=== PATIENT | female | born 1990 | race Caucasian/White ===

== ENCOUNTER 2020-01-20 10:10 | Inpatient (IN) | payer OTHER ==
[~2020-01-20 10:10] MED LIST: AMPICILLIN - 2 GM in SODIUM CHLORIDE 100 ML IVPB ONE; ELECTROLYTE-148 SOLN 500 ML IV ONE
[2020-01-20] MEDS ORDERED: AMPICILLIN SODIUM 2 GM VIAL ONE (10:24)
[2020-01-20] MEDS ORDERED: ELECTROLYTE-148 SOLN 1,000 ML IV SCH (11:00)
[2020-01-20 11:23] VITALS: BMI 25.7
[2020-01-20 11:34] LABS: INR 0.85 (0.83-1.09)
[2020-01-20 11:43] LABS: BASO % 0.2 % (0-2.0); EOS % 0.3 % (0-4.5); HEMATOCRIT 35.7 % (32.4-45.2); HEMOGLOBIN 11.8 GM/dL (10.7-15.3); LYMPH % 18.2 % (8-40); MCH 29.2 pg (25.7-33.7); MCHC 33.1 g/dl (32.0-36.0); MEAN CELL VOLUME 88.1 fl (80-96); MEAN PLT VOLUME 9.7 fl (7.5-11.1); MONO % 8.3 % (3.8-10.2); PLATELET COUNT 247 K/MM3 (134-434); RBC 4.06 M/mm3 (3.60-5.2); RDW 14.4 % (11.6-15.6); WHITE BLOOD COUNT 9.6 K/mm3 (4.0-10.0)
[2020-01-20] MEDS ORDERED: PCA PUMP NR ONE (11:47)
[2020-01-20] MEDS ORDERED: FENTANYL/BUPIVACAINE/NS/PF - PCEA - 50 ML DISP.SYRIN EP ONE (11:48)
[2020-01-20 11:50] LABS: BLOOD UREA NITROGEN 8.7 mg/dL (7-18); CALCIUM 8.9 mg/dL (8.5-10.1); CREATININE 0.5 mg/dL (0.55-1.3); POTASSIUM 3.9 mmol/L (3.5-5.1)
[2020-01-20] MEDS ORDERED: NALOXONE HCL 0.4 MG/ML VIAL IVPUSH PRN (13:28)
[2020-01-20] MEDS ORDERED: FENTANYL/BUPIVACAINE/NS/PF - PCEA - 50 ML DISP.SYRIN EP SCH (13:30)
[2020-01-20] MEDS: AMPICILLIN - 1 GM in SODIUM CHLORIDE 100 ML IVPB SCH (13:30)
[2020-01-20] MEDS ORDERED: AMPICILLIN SODIUM 1 GM VIAL ONE (13:33)
[2020-01-20] MEDS ORDERED: OXYTOCIN 20 UNITS in 0.9% NS 20 UNIT/1,000 ML INFUS.BAG IV ONE ×2 (13:33→15:59)
[2020-01-20] MEDS ORDERED: BENZOCAINE 28 GM HEMORRHOIDAL OINTMENT TP PRN (14:38)
[2020-01-20] MEDS ORDERED: BISACODYL 10 MG SUPP.RECT RC PRN (14:38)
[2020-01-20] MEDS ORDERED: METHYLERGONOVINE MALEATE 0.2 MG/1 ML AMP IM PRN (14:38)
--- NOTE | 2020-01-20 14:40 | HP ---
Past Medical History - Primary Care Physician PCP:: Zack Briseno - Past Medical History ...: 1 ...Para: 0 ...Term: 0 ...: 0 ...Spon : 0 ...Induced : 0 ...Living Children: 0 ...Multiple Gestation: 0 ...LMP: 04/12/19 ... Weeks Gestation by Dates: 40.3 ...EDC by Dates: 01/17/20 ...EDC by Sono: 01/25/20 - Smoking History Smoking history: Never smoked Have you smoked in the past 12 months: No - Alcohol/Substance Use Hx Alcohol Use: No Home Medications - Allergies Allergies/Adverse Reactions: Allergies Allergy/AdvReac Type Severity Reaction Status Date / Time rabbit dander Allergy Mild Verified 01/20/20 11:07 No Known Drug Allergies Allergy Verified 01/20/20 11:07 - Home Medications Home Medications: Ambulatory Orders Vitamins (Sjr) - 1 tab PO DAILY 01/20/20 Physical Exam - Maternity Vital Signs: Vital Signs Temperature 98.1 F 01/20/20 12:00 Pulse Rate 92 H 01/20/20 13:30 Respiratory Rate 20 01/20/20 13:30 Blood Pressure 132/84 01/20/20 13:30 O2 Sat by Pulse Oximetry (%) 100 01/20/20 13:30 - Labs Lab Results: CBC, BMP 01/20/20 10:50 01/20/20 10:50
[2020-01-20] MEDS ORDERED: OXYTOCIN 20 UNITS in 0.9% NS 20 UNIT/1,000 ML INFUS.BAG IV SCH (14:45)
[2020-01-20 14:56] LABS: CORD BASE EXCESS -4.9 mmol/L (0-2); CORD HCO3 20.2 mmHg (20-29); CORD PCO2 38.1 mmHg (30-78); CORD pH 7.343 (7.14-7.44)
[2020-01-20] MEDS: IBUPROFEN 600 MG TABLET (FP) PO PRN ×3 (16:20→23:53)
[2020-01-20] MEDS: ACETAMINOPHEN 325 MG TABLET (FP) PO PRN ×3 (16:20→23:53)
[2020-01-20] MEDS ORDERED: ACETAMINOPHEN 325 MG TABLET (FP) ONE (16:26)
[2020-01-20] MEDS ORDERED: IBUPROFEN 600 MG TABLET (FP) PO ONE (16:26)
--- NOTE | 2020-01-20 16:51 | PN ---
Delivery - Delivery Vaginal Delivery: Spontaneous (cx full head on pernium, head dilivered , cord around neck once reduced , ant and post . shoulder with no difficulty , live baby girl, 9/9 , placeta complete, median episiotomy in 3 layers with 2o chromic , ebl 300 cc , no complication, baby bonded with mom) Type of Anesthesia: Local, Epidural Episiotomy/Laceration: Midline EBL (cc): 300 Delivery, Single - Stages of Labor Date 1st Stage Initiatied: 01/20/20 Time 1st Stage Initiated: 04:00 Date 2nd Stage Initiated: 01/20/20 Time 2nd Stage Initiated: 13:55 Date of Delivery: 01/20/20 Time of Delivery: 14:12 Time Placenta Delivered: 14:15 - Condition of Infant Guest Service Agent/Kerfer Machine Operator Present: No Infant Gender: Female Weight: 6 lb 1 oz Position: Left, OA Total Hours ROM (Hrs/Mins): 1hr 29min - 1 Minute Total Score: 9 5 Minutes Total Score: 9 - Feeding Plan Initial Plan: Exclusive throughout hospitalization
[2020-01-20] MEDS: FERROUS SO4 325 MG TABLET (FP) PO SCH (18:41)
[2020-01-20] MEDS: BENZOCAINE 20% 57 GM BOTTLE TP PRN ×2 (18:51→23:54)
[2020-01-20] MEDS: WITCH HAZEL 50% (TUCKS) 40 PAD/JAR PAD TP PRN ×2 (18:52→23:54)
[2020-01-21] MEDS: AMPICILLIN - 1 GM in SODIUM CHLORIDE 100 ML IVPB SCH (02:20)
[2020-01-21] MEDS: IBUPROFEN 600 MG TABLET (FP) PO PRN ×4 (05:03→20:32)
[2020-01-21] MEDS: ACETAMINOPHEN 325 MG TABLET (FP) PO PRN ×4 (05:04→20:33)
--- NOTE | 2020-01-21 06:49 | PN ---
Progress Note (short form) - Note Progress Note: ppd 1 doing well, no excess vaginal bleeding CBC, BMP 01/20/20 10:50 01/20/20 10:50 Last Vital Signs Temp Pulse Resp BP Pulse Ox 98.7 F 88 18 113/77 99 01/21/20 05:05 01/21/20 05:05 01/21/20 05:05 01/21/20 05:05 01/20/20 16:00 abdomen soft, no distension, no cva uterus firm, non tender lochia mild no calf tenderness plan ambulate cbc for d/c home in am
[2020-01-21 08:35] LABS: BASO % 0.3 % (0-2.0); EOS % 0.5 % (0-4.5); HEMATOCRIT 32.8 % (32.4-45.2); HEMOGLOBIN 10.7 GM/dL (10.7-15.3); LYMPH % 17.8 % (8-40); MCH 28.2 pg (25.7-33.7); MCHC 32.6 g/dl (32.0-36.0); MEAN CELL VOLUME 86.6 fl (80-96); MEAN PLT VOLUME 9.2 fl (7.5-11.1); MONO % 6.4 % (3.8-10.2); PLATELET COUNT 249 K/MM3 (134-434); RBC 3.78 M/mm3 (3.60-5.2); RDW 14.2 % (11.6-15.6); WHITE BLOOD COUNT 13.8 K/mm3 (4.0-10.0)
[2020-01-21] MEDS: PRENATAL VITAMINS W/ FOLIC ACID TABLET (FP) PO SCH (09:32)
[2020-01-21] MEDS: FERROUS SO4 325 MG TABLET (FP) PO SCH ×2 (09:32→17:45)
[2020-01-21] MEDS ORDERED: SENNOSIDES/DOCUSATE COMBO (SENNA PLUS) TABLET (UD) PO PRN (22:00)
[2020-01-22] MEDS: IBUPROFEN 600 MG TABLET (FP) PO PRN (08:21)
[2020-01-22] MEDS: FERROUS SO4 325 MG TABLET (FP) PO SCH (08:22)
[2020-01-22] MEDS: PRENATAL VITAMINS W/ FOLIC ACID TABLET (FP) PO SCH (08:22)
[2020-01-22] MEDS: ACETAMINOPHEN 325 MG TABLET (FP) PO PRN (08:23)
[2020-01-22 08:29] VITALS: BP 126/81; PULSE 83; TEMP 98.1
--- NOTE | 2020-01-22 11:46 | PN ---
Post Progress Note - Subjective Subjective: Patient without acute complaints. Reports tolerating oral intake without nausea or vomiting. Ambulating without dizziness. Denies fevers or chills. Pain well controlled with oral pain medication. Pumping/breast feeding without issue. Passing flatus. Post Day: 2 Type of Delivery: Vital Signs: Vital Signs Temperature 98.1 F 01/22/20 08:28 Pulse Rate 83 01/22/20 08:28 Respiratory Rate 17 01/22/20 08:28 Blood Pressure 126/81 01/22/20 08:28 O2 Sat by Pulse Oximetry (%) 98 01/21/20 22:33 Breast Exam: Yes: Soft Uterus: Yes: Fundus Firm, Fundus below umbilicus, Non-tender Abdomen/GI: Yes: Abdomen soft, Passing flatus, Tolerating PO Lochia: Yes: Rubra Lochia, amount: Small Extremities: Yes: Calves non-tender Perineum: Yes: Intact, Episiotomy Activity: Ambulating - Labs Labs: CBC WBC 13.8 K/mm3 (4.0-10.0) H 01/21/20 07:55 RBC 3.78 M/mm3 (3.60-5.2) 01/21/20 07:55 Hgb 10.7 GM/dL (10.7-15.3) 01/21/20 07:55 Hct 32.8 % (32.4-45.2) 01/21/20 07:55 MCV 86.6 fl (80-96) 01/21/20 07:55 MCH 28.2 pg (25.7-33.7) 01/21/20 07:55 MCHC 32.6 g/dl (32.0-36.0) 01/21/20 07:55 RDW 14.2 % (11.6-15.6) 01/21/20 07:55 Plt Count 249 K/MM3 (134-434) 01/21/20 07:55 MPV 9.2 fl (7.5-11.1) 01/21/20 07:55 Absolute Neuts (auto) 10.4 K/mm3 (1.5-8.0) H 01/21/20 07:55 Neutrophils % 75.0 % (42.8-82.8) 01/21/20 07:55 Lymphocytes % 17.8 % (8-40) 01/21/20 07:55 Monocytes % 6.4 % (3.8-10.2) 01/21/20 07:55 Eosinophils % 0.5 % (0-4.5) 01/21/20 07:55 Basophils % 0.3 % (0-2.0) 01/21/20 07:55 Nucleated RBC % 0 % (0-0) 01/21/20 07:55 Assessment/Plan 29yo P1 s/p , doing well stable, afebrile. Asymptomatic for anemia. care instructions reviewed. Continue routine care. Ambulation encouraged Discharge instruction reviewed.
--- NOTE | 2020-01-22 12:06 | DS ---
Physical Exam-CAREER TRANSITION SPECIALIST Vital Signs: Vital Signs Temperature 98.1 F 01/22/20 08:28 Pulse Rate 83 01/22/20 08:28 Respiratory Rate 17 01/22/20 08:28 Blood Pressure 126/81 01/22/20 08:28 O2 Sat by Pulse Oximetry (%) 98 01/21/20 22:33 Constitutional: Yes: Well Nourished, No Distress, Calm Eyes: Yes: WNL, Conjunctiva Clear, EOM Intact HENT: Yes: WNL, Atraumatic, Normocephalic Neck: Yes: WNL, Supple, Trachea Midline Cardiovascular: Yes: WNL, Regular Rate and Rhythm Respiratory: Yes: WNL, Regular, CTA Bilaterally Gastrointestinal: Yes: WNL, Normal Bowel Sounds, Soft ...Rectal Exam: Yes: Deferred Renal/: Yes: WNL ....Post : Yes: Uterus firm, Uterus non-tender, Slight lochia rubra Breast(s): Yes: WNL Musculoskeletal: Yes: WNL Extremities: Yes: WNL Edema: No Integumentary: Yes: WNL Neurological: Yes: WNL, Alert, Oriented ...Motor Strength: WNL Psychiatric: Yes: WNL, Alert, Oriented Labs: CBC, BMP 01/21/20 07:55 01/20/20 10:50 Delivery - Delivery Vaginal Delivery: No Problems, Spontaneous (cx full head on pernium, head dilivered , cord around neck once reduced , ant and post . shoulder with no difficulty , live baby girl, 9/9 , placeta complete, median episiotomy in 3 layers with 2o chromic , ebl 300 cc , no complication, baby bonded with mom) Type of Anesthesia: Local, Epidural Episiotomy/Laceration: Midline EBL (cc): 300 Delivery, Single - Stages of Labor Date 1st Stage Initiatied: 01/20/20 Time 1st Stage Initiated: 04:00 Date 2nd Stage Initiated: 01/20/20 Time 2nd Stage Initiated: 13:55 Date of Delivery: 01/20/20 Time of Delivery: 14:12 Time Placenta Delivered: 14:15 Placenta: Yes: Spontaneous, Normal Configuration - Condition of Harvest Manager/Honing Machine Operator Semiautomatic Present: No Infant Gender: Female Weight: 2.75 kg Position: Left, OA Total Hours ROM (Hrs/Mins): 1hr 29min - 1 Minute Total Score: 9 5 Minutes Total Score: 9 - [place] Feeding Plan Initial Plan: Exclusive throughout hospitalization Benefits of Exclusively reinforced: Yes Discharge Summary Problems reviewed: Yes Reason For Visit: LABOR ADMISSION Procedures: Principal: Hospital Course: Normal course Goals: Normal course Condition: Good - Instructions Diet, Activity, Other Instructions: Physical activity Resume your normal everyday activity as tolerated no heavy lifting or exercise until seen by your surgeon. You may walk unlimited velasquez of and climb stairs. You may resume driving the car when you feel safe and comfortable behind the wheel. No sexual activity as instructed. Wound care If you have a bandage, leave it on, and keep dry for 48-72 hours. After that time discard the outer bandage. If they are tapes on the skin under the out of bandage leave them in place. They will peel off in the next 7 to 10 days. Do Not Peel them off. You may shower the day after surgery. If there are tapes present on the skin, you may shower over them. Diet There are no dietary restrictions. Eat healthy, high-fiber foods. Drink 6 to 8 glasses of liquid each day. This will assist in keeping your bowels are regular. Pain management You may take Tylenol or acetaminophen or Ibuprofen (for example, Motrin, Advil etc.) from my pain prescription medication is ordered should be taken as prescribed for moderate to severe pain. Call MD for any of the following: Severe pain not relieved by medication Fever of 101 or higher Excessive bleeding or drainage on dressing Inability to urinate Referrals: Celina Fuentes MD [Staff Physician] - 1 Month Disposition: HOME - Home Medications Comprehensive Discharge Medication List: Ambulatory Orders Vitamins (Sjr) - 1 tab PO DAILY 01/20/20 Prescription Drug Monitoring Program (I-STOP) results: I-STOP not reviewed
== END 2020-01-22 14:04 | disposition home or self-care (01) | DRG 807 ==
LOC: JDEL 10:10 → JLDR 10:20 → J3W 16:30
PROVIDERS: ADMIT Obstetrics & Gynecology; ATTEND Obstetrics & Gynecology
PROC: 10E0XZZ Delivery of Products of Conception, External Approach (ICD-10-PCS; principal; 2020-01-20)
PROC: 0W8NXZZ Division of Female Perineum, External Approach (ICD-10-PCS; 2020-01-20)
PROC: 3E0S3BZ Introduction of Anesthetic Agent into Epidural Space, Percutaneous Approach (ICD-10-PCS; 2020-01-20)
DX: O80 Encounter for full-term uncomplicated delivery (principal); Z37.0 Single live birth; Z3A.40 40 weeks gestation of pregnancy
CPT/HCPCS: 36415; 36600; 80048; 82803; 85025; 85610; 85730; 86780; 86850; 86900; 86901; 87389; U0003

== ENCOUNTER 2023-03-09 21:45 | Inpatient (IN) | payer OTHER ==
[2023-03-09 23:53] LABS: BASO % 0.4 % (0-2.0); EOS % 0.4 % (0-4.5); HEMOGLOBIN 12.3 GM/dL (10.7-15.3); LYMPH % 29.8 % (8-40); MCH 29.3 pg (25.7-33.7); MCHC 34.1 g/dl (32.0-36.0); MEAN PLT VOLUME 8.9 fl (7.5-11.1); MONO % 8.2 % (3.8-10.2); NEUT % 61.2 % (42.8-82.8); PLATELET COUNT 227 10^3/uL (134-434); RBC 4.19 M/mm3 (3.60-5.2); RDW 14.8 % (11.6-15.6); WHITE BLOOD COUNT 11.9 K/mm3 (4.0-10.0)
[2023-03-10] MEDS ORDERED: FENTANYL/BUPIVACAINE/NS/PF - PCEA - 50 ML DISP.SYRIN EP ONE (00:01)
[2023-03-10 00:03] LABS: INR 0.92 (0.83-1.09); PROTHROMBIN TIME (PATIENT) 10.7 SEC (9.7-13.0)
[2023-03-10] MEDS ORDERED: AMPICILLIN SODIUM 2 GM VIAL ONE (00:04)
[2023-03-10] MEDS ORDERED: OXYTOCIN 20 UNITS in 0.9% NS 20 UNIT/1,000 ML INFUS.BAG IV ONE (00:04)
[2023-03-10 00:05] LABS: ACTIVATED PTT 24.4 SECONDS (25.2-36.5)
[2023-03-10] MEDS ORDERED: AMPICILLIN - 2 GM in SODIUM CHLORIDE 100 ML IVPB ONE (00:10)
[2023-03-10 00:43] LABS: POTASSIUM 3.5 mmol/L (3.5-5.1)
[2023-03-10 00:44] LABS: CALCIUM 8.9 mg/dL (8.5-10.1)
[2023-03-10 00:45] LABS: BLOOD UREA NITROGEN 12.2 mg/dL (7-18)
[2023-03-10] MEDS ORDERED: NALOXONE HCL 0.4 MG/ML VIAL IVPUSH PRN (00:47)
[2023-03-10 00:48] LABS: CREATININE 0.6 mg/dL (0.55-1.3)
[2023-03-10] MEDS ORDERED: FENTANYL/BUPIVACAINE/NS/PF - PCEA - 50 ML DISP.SYRIN EP SCH (01:00)
[2023-03-10] MEDS ORDERED: ACETAMINOPHEN 325 MG TABLET (FP) PO PRN (01:36)
[2023-03-10] MEDS ORDERED: METHYLERGONOVINE MALEATE 0.2 MG/1 ML AMP IM PRN (01:36)
[2023-03-10] MEDS ORDERED: BENZOCAINE 28 GM HEMORRHOIDAL OINTMENT TP PRN (01:36)
[2023-03-10] MEDS ORDERED: BISACODYL 10 MG SUPP.RECT RC PRN (01:36)
[2023-03-10] MEDS ORDERED: WITCH HAZEL 50% (TUCKS) 40 PAD/JAR PAD TP PRN (01:36)
[2023-03-10] MEDS ORDERED: BENZOCAINE 20% 57 GM BOTTLE TP PRN (01:36)
[2023-03-10] MEDS ORDERED: OXYTOCIN 20 UNITS in 0.9% NS 20 UNIT/1,000 ML INFUS.BAG IV SCH (01:45)
[2023-03-10 01:46] VITALS: BMI 24.5
[2023-03-10 02:16] LABS: CORD BASE EXCESS -2.5 mmol/L (0-2); CORD HCO3 23.9 mmHg (20-29); CORD PCO2 46.4 mmHg (30-78); CORD pH 7.329 (7.14-7.44)
[2023-03-10 02:25] LABS: CORD BASE EXCESS -2.7 mmol/L (0-2); CORD PCO2 38.8 mmHg (30-78); CORD pH 7.372 (7.14-7.44)
[2023-03-10] MEDS: IBUPROFEN 600 MG TABLET (FP) PO PRN ×4 (03:06→18:33)
[2023-03-10] MEDS ORDERED: AMPICILLIN - 1 GM in SODIUM CHLORIDE 100 ML IVPB SCH (04:15)
[2023-03-10] MEDS: PRENATAL VITAMINS W/ FOLIC ACID TABLET (FP) PO SCH (10:24)
[2023-03-11] MEDS: IBUPROFEN 600 MG TABLET (FP) PO PRN ×3 (03:51→16:51)
[2023-03-11 06:24] VITALS: RESP 16
[2023-03-11 09:07] LABS: BASO % 0.4 % (0-2.0); EOS % 1.9 % (0-4.5); HEMATOCRIT 33.4 % (32.4-45.2); HEMOGLOBIN 11.1 GM/dL (10.7-15.3); MCH 29.2 pg (25.7-33.7); MCHC 33.1 g/dl (32.0-36.0); MEAN CELL VOLUME 88.1 fl (80-96); MEAN PLT VOLUME 9.8 fl (7.5-11.1); MONO % 8.2 % (3.8-10.2); NEUT % 60.5 % (42.8-82.8); PLATELET COUNT 220 10^3/uL (134-434); RBC 3.79 M/mm3 (3.60-5.2); RDW 14.7 % (11.6-15.6); WHITE BLOOD COUNT 9.6 K/mm3 (4.0-10.0)
[2023-03-11] MEDS: PRENATAL VITAMINS W/ FOLIC ACID TABLET (FP) PO SCH (09:46)
[2023-03-11] MEDS ORDERED: SENNOSIDES/DOCUSATE COMBO (SENNA PLUS) TABLET (UD) PO PRN (22:00)
[2023-03-12 08:36] VITALS: BP 112/74; PULSE 89; TEMP 98
[2023-03-12] MEDS: PRENATAL VITAMINS W/ FOLIC ACID TABLET (FP) PO SCH (09:30)
== END 2023-03-12 12:30 | disposition home or self-care (01) | DRG 807 ==
LOC: JDEL 21:45 → JLDR 23:30 → J3W 03-10 02:48
PROVIDERS: ADMIT Obstetrics & Gynecology; ATTEND Obstetrics & Gynecology
PROC: 10E0XZZ Delivery of Products of Conception, External Approach (ICD-10-PCS; principal; 2023-03-10)
PROC: 0KQM0ZZ Repair Perineum Muscle, Open Approach (ICD-10-PCS; 2023-03-10)
PROC: 0W8NXZZ Division of Female Perineum, External Approach (ICD-10-PCS; 2023-03-10)
DX: O99.824 Streptococcus B carrier state complicating childbirth (principal); Z37.0 Single live birth; O70.1 Second degree perineal laceration during delivery; Z3A.38 38 weeks gestation of pregnancy
CPT/HCPCS: 36415; 36600; 80048; 82803; 85025; 85610; 85730; 86780; 86850; 86900; 86901

== ENCOUNTER 2024-06-03 02:35 | Inpatient (IN) | payer OTHER ==
[2024-06-03] MEDS: LACTATED RINGERS SOLUTION 1,000 ML IV SCH (03:30)
[2024-06-03 03:48] LABS: BASO % 0.3 % (0-2.0); EOS % 0.9 % (0-4.5); HEMATOCRIT 32.8 % (32.4-45.2); HEMOGLOBIN 11.4 GM/dL (10.7-15.3); LYMPH % 26.8 % (8-40); MCH 30.1 pg (25.7-33.7); MCHC 34.8 g/dl (32.0-36.0); MEAN CELL VOLUME 86.5 fl (80-96); MEAN PLT VOLUME 7.7 fl (7.5-11.1); MONO % 13.1 % (3.8-10.2); NEUT % 58.9 % (42.8-82.8); PLATELET COUNT 255 10^3/uL (134-434); RDW 14.1 % (11.6-15.6); WHITE BLOOD COUNT 7.3 K/mm3 (4.0-10.0)
[2024-06-03 03:54] LABS: INR 0.88 (0.83-1.09)
[2024-06-03 03:57] LABS: ACTIVATED PTT 25.2 SECONDS (25.2-36.5)
[2024-06-03] MEDS ORDERED: FENTANYL/BUPIVACAINE/NS/PF - PCEA - 50 ML DISP.SYRIN EP ONE (04:01)
[2024-06-03 04:08] LABS: BLOOD UREA NITROGEN 12.3 mg/dL (7-18); CALCIUM 8.9 mg/dL (8.5-10.1)
[2024-06-03 04:12] LABS: CREATININE 0.6 mg/dL (0.55-1.3)
[2024-06-03] MEDS: FENTANYL/BUPIVACAINE/NS/PF - PCEA - 50 ML DISP.SYRIN EP SCH (04:20)
[2024-06-03] MEDS ORDERED: NALOXONE HCL 0.4 MG/ML VIAL IVPUSH PRN (04:31)
[2024-06-03 04:41] VITALS: BMI 24.2
[2024-06-03] MEDS ORDERED: OXYTOCIN 20 UNITS in 0.9% NS 20 UNIT/1,000 ML INFUS.BAG IV ONE (07:02)
[2024-06-03] MEDS: OXYTOCIN 20 UNITS in 0.9% NS 20 UNIT/1,000 ML INFUS.BAG IV SCH (07:35)
[2024-06-03] MEDS ORDERED: BENZOCAINE 28 GM HEMORRHOIDAL OINTMENT TP PRN (07:42)
[2024-06-03] MEDS ORDERED: oxyCODONE HCL 5 MG TABLET PO PRN (07:42)
[2024-06-03] MEDS ORDERED: BISACODYL 10 MG SUPP.RECT RC PRN (07:42)
[2024-06-03] MEDS ORDERED: METHYLERGONOVINE MALEATE 0.2 MG/1 ML AMP IM PRN (07:42)
[2024-06-03] MEDS ORDERED: WITCH HAZEL 50% (TUCKS) 40 PAD/JAR PAD TP PRN (07:42)
[2024-06-03 08:51] LABS: CORD BASE EXCESS -3.1 mmol/L (0-2); CORD HCO3 23.1 mmHg (20-29); CORD pH 7.329 (7.14-7.44)
[2024-06-03 08:54] LABS: CORD BASE EXCESS -5.2 mmol/L (0-2); CORD HCO3 22.1 mmHg (20-29); CORD PCO2 48.9 mmHg (30-78); CORD pH 7.273 (7.14-7.44)
[2024-06-03] MEDS ORDERED: FERROUS SO4 325 MG TABLET (FP) ONE (08:58)
[2024-06-03] MEDS ORDERED: IBUPROFEN 600 MG TABLET (FP) PO ONE (08:58)
[2024-06-03] MEDS ORDERED: PRENATAL VITAMINS W/ FOLIC ACID TABLET (FP) PO ONE (08:59)
[2024-06-03] MEDS: PRENATAL VITAMINS W/ FOLIC ACID TABLET (FP) PO SCH (09:00)
[2024-06-03] MEDS: FERROUS SO4 325 MG TABLET (FP) PO SCH (09:00)
[2024-06-03] MEDS: IBUPROFEN 600 MG TABLET (FP) PO PRN (09:00)
[2024-06-03 10:39] VITALS: RESP 18
[2024-06-03] MEDS: BENZOCAINE 20% 57 GM BOTTLE TP PRN (10:57)
[2024-06-03] MEDS: ACETAMINOPHEN 325 MG TABLET (FP) PO PRN (10:57)
[2024-06-04 07:50] LABS: BASO % 0.3 % (0-2.0); EOS % 1.4 % (0-4.5); HEMATOCRIT 32.4 % (32.4-45.2); HEMOGLOBIN 11.2 GM/dL (10.7-15.3); LYMPH % 27.7 % (8-40); MCH 30.1 pg (25.7-33.7); MCHC 34.5 g/dl (32.0-36.0); MEAN CELL VOLUME 87.4 fl (80-96); MEAN PLT VOLUME 8.4 fl (7.5-11.1); MONO % 8.2 % (3.8-10.2); NEUT % 62.4 % (42.8-82.8); PLATELET COUNT 219 10^3/uL (134-434); RBC 3.71 M/mm3 (3.60-5.2); WHITE BLOOD COUNT 10.6 K/mm3 (4.0-10.0)
[2024-06-04] MEDS ORDERED: SENNOSIDES/DOCUSATE COMBO (SENNA PLUS) TABLET (UD) PO PRN (22:00)
[2024-06-05 09:31] VITALS: BP 115/79; TEMP 98.7
[2024-06-05 11:56] VITALS: PULSE 88
== END 2024-06-05 13:35 | disposition home or self-care (01) | DRG 807 ==
LOC: JDEL 02:35 → JLDR 03:10 → J3W 10:30
PROVIDERS: ADMIT Obstetrics & Gynecology; ATTEND Obstetrics & Gynecology
PROC: 10E0XZZ Delivery of Products of Conception, External Approach (ICD-10-PCS; principal; 2024-06-03)
DX: O80 Encounter for full-term uncomplicated delivery (principal); Z37.0 Single live birth; Z3A.38 38 weeks gestation of pregnancy
CPT/HCPCS: 36415; 36600; 59409; 80048; 82803; 85025; 85610; 85730; 86780; 86850; 86900; 86901; 88307-TC